=== PATIENT | female | born 1965 | race Caucasian/White ===

== ENCOUNTER 2024-03-14 02:53 | Emergency (ER) | payer BC, SELFPAY ==
[2024-03-14 02:54] VITALS: BP 121/85
--- NOTE | 2024-03-14 03:05 | ED.GENMED ---
History of Present Illness
General
Chief Complaint: Fainting/Passed Out
Time Seen by Provider: 03/14/24 03:05
Travel History
Have you had any contact with someone who has COVID-19?: No
Do you have any symptoms of coronavirus? Fever > 100 degrees, chills, cough, shortness of breath, sore throat, loss of taste or smell, muscle aches, or headache?: No
History of Present Illness
History of Present Illness:
HPI: Patient woke up and had a general unwell feeling. She thought she needed to vomit and try to go to the bathroom and thought she might be dehydrated. She then passed out. The glass that she was carrying broke. She has pain in the right side
of the back of the head and in the upper neck. She never had any chest pain or shortness of breath.
EXAM:
GENERAL: Well appearing in no distress
CERVICAL SPINE: (+) Midline upper c-spine tenderness
HEAD: No evidence of craniofacial trauma with exception of hematoma/tenderness near the mastoid on the right side, the patient has no evidence of laceration or any clear sign of broken glass on the scalp
CHEST: No chest wall tenderness, normal heart sounds
LUNGS: Equal lung sounds, no respiratory distress
ABDOMEN: No abdominal tenderness, no peritoneal signs
EXTREMITIES: Normal active range of motion, no tenderness
NEURO: Excellent strength all extremities, appropriate mental status, normal speech/language
TIME OF INITIAL ENCOUNTER: 3:10 AM
NUMBER AND COMPLEXITY OF PROBLEMS ADDRESSED AT THE ENCOUNTER
� Chronic conditions affecting care: Breast cancer, osteoporosis
� Acute Exacerbation and/or Progression of Chronic Illness: This is an acute problem
� Differential Diagnosis includes: Anemia, dehydration, electrolyte abnormality, dysrhythmia
AMOUNT AND/OR COMPLEXITY OF DATA TO BE REVIEWED AND ANALYZED
� I performed an independent evaluation of and my interpretation is:
EKG: Sinus 69, no acute ST abnormality, no change in comparison to 10/09/2022
CT: CT of the head and CT of the cervical spine showed no acute traumatic abnormality
X-rays:
Laboratory Studies: White count normal, hemoglobin 14.0, chemistries unremarkable
Other:
� Review of other/old records: The patient had a CAT scan 2021 of the brain which was unremarkable
� Clinical information was obtained by an independent historian: I spoke to the at bedside
� Prescriptions/Medications Considered but not given:
� Further testing considered but not performed:
RISK OF COMPLICATIONS AND/OR MORBIDITY OR MORTALITY OF PATIENT MANAGEMENT
� Social determinants of health affecting care: Lives at home
� Discussion with other providers:
� Escalation of care including admission/observation vs risk of discharge considered: The cause of the patient's syncopal event is unclear but basic studies are unremarkable. She did have some ongoing nausea here which may be
related to head injury. We gave Zofran and then Compazine. She was also given IV fluids.
Past History
Past History
ED Past Medical History: Other (breast CA)
Phy Exam
Physical Exam
Physical Exam:
See HPI
Course
Orders/Labs/Results
Orders:
Orders
03/14/24 03:05
Electrocardiogram (*1) Urgent
Reason for Study: Syncope
EKG- Treatment ONCE
03/14/24 03:06
Electrocardiogram (*1) Urgent
Reason for Study: Syncope
EKG- Treatment ONCE
03/14/24 03:15
CT Cervical Spine W/o Iv Contr Urgent
Comment:
Reason For Exam: trauma midline upper cspine tender
CT Head W/o Iv Contrast Urgent
Comment:
Reason For Exam: syncope head trauma
03/14/24 03:18
Basic Metabolic Panel Urgent
Complete Blood Count/With Diff Urgent
03/14/24 04:09
Ondansetron Injectable [Zofran] 4 mg .ROUTE .[facility]
03/14/24 04:10
Ondansetron Injectable [Zofran] 4 mg IV NOW STA
03/14/24 05:12
Acetaminophen [Tylenol] 1,000 mg .ROUTE .[facility]
03/14/24 05:13
0.9% Sodium Chloride 1000 ml [Nss] 1,000 ml IV BOLUS
Acetaminophen [Tylenol] 1,000 mg PO NOW STA
03/14/24 05:19
Prochlorperazine [Compazine] 10 mg .ROUTE .[facility]
03/14/24 05:21
Prochlorperazine [Compazine] 10 mg IV NOW STA
Abnormal Lab Results
03/14/24
03:18
RBC 4.15 L 10^6/uL
(4.20-5.40)
MCH 33.7 H pg
(27.0-31.0)
MCHC 37.2 H g/dL
(33.0-37.0)
RDW 11.2 L %
(11.5-14.5)
Absolute Neuts (auto) 9.3 H 10^3/uL
(1.4-6.5)
Absolute Lymphs (auto) 0.3 L 10^3/uL
(1.2-3.4)
Neutrophils % 93.4 H %
(42.2-75.2)
Lymphocytes % 3.1 L %
(20.5-51.1)
Glucose 135 H mg/dl
(70-99)
03/14/24 03:18
03/14/24 03:18
Vital Signs
Initial and Last Documented VS:
Initial Vital Signs
Temp Pulse Resp BP Pulse Ox
99.2 F 79 16 121/85 100
03/14/24 02:54 03/14/24 02:54 03/14/24 02:54 03/14/24 02:54 03/14/24 02:54
Last Documented Vital Signs
Temp Pulse Resp BP Pulse Ox
99.2 F 79 16 121/85 100
03/14/24 02:54 03/14/24 02:54 03/14/24 02:54 03/14/24 02:54 03/14/24 02:54
*Critical Care Note
Total Time (30-74mins, 75-104mins- exclusive of procedures): Not Applicable
ED Attending Note
-
Portions of this chart may have been created with voice recognition software.� Occasional wrong word or��sound alike� substitutions may have occurred due to the inherent limitations of voice recognition software.
Discharge Plan
Departure
Patient Disposition: Home (Routine Discharge)
Date of Disposition: 03/14/24
Time of Disposition: 06:04
Patient with high blood pressure during this ER visit?: Yes
Discharge Problem:
Syncope and collapse
Prescriptions:
No Action
valacyclovir [Valtrex] 1 gram tablet
1,000 mg PO Q8H Qty: 21 0RF
meclizine 25 mg tablet
25 mg PO TID PRN (Reason: dizziness) Qty: 10 0RF
Referrals:
Rimma Rodríguez MD [Family Provider] -
Activity Restrictions/Additional Instructions:
The cause of your symptoms is unclear. Your white blood cell count and hemoglobin are both normal, electrolytes and kidney function are normal. CAT scan of the brain and cervical spine showed no sign of bleeding. The EKG shows no abnormality.
You are given IV fluids. We also gave you Zofran and then Compazine for nausea. Regarding constipation, I recommend that you try [id number]. It is common to have nausea and a general unwell feeling after head injury that could be
related to concussion.
Interventions
Interventions:
*Risk Screen - Suicide Last Done: 03/14/24 02:54
*General Assessment Last Done: 03/14/24 02:54
*Neglect/Abuse Screening Last Done: 03/14/24 02:54
*ED COVID-19 Vaccine History Last Done: 03/14/24 03:20
*Nursing Disposition Last Done: 03/14/24 06:44
ED- Cardiac Assessment Last Done: 03/14/24 03:20
ED- Neurological Assessment Last Done: 03/14/24 03:20
Discharge Date and Time
Discharge Date/Time: 03/14/24 06:45
Print Language: [place]
[2024-03-14 03:20] VITALS: BMI 21.2
[2024-03-14 03:23] LABS: % Basophils 0.2 % (0-2); % Eosinophils 0.3 % (0-6); % Immature Granulocytes 0.3 % (0-0.5); % Lymphocytes 3.1 % (20.5-51.1); % Monocytes 2.7 % (1.7-9.3); % Neutrophils 93.4 % (42.2-75.2); Absolute Lymphocytes 0.3 10^3/uL (1.2-3.4); Absolute Monocytes 0.3 10^3/uL (0.1-0.6); Absolute Neutrophils 9.3 10^3/uL (1.4-6.5); Hematocrit 37.6 % (37.0-47.0); Mean Corp Hgb Conc. 37.2 g/dL (33.0-37.0); Mean Corpuscular Hgb 33.7 pg (27.0-31.0); Mean Corpuscular Volume 90.6 fL (81.0-99.0); Mean Platelet Volume 9.6 fL (7.4-10.4); Nucleated Red Blood Cells % 0 %; Platelet Count 168 10^3/uL (130-400); Red Blood Cell Count 4.15 10^6/uL (4.20-5.40); Red Cell Dist. Width 11.2 % (11.5-14.5); White Blood Cell Count 9.9 10^3/uL (4.8-10.8)
[2024-03-14 03:42] LABS: Blood Urea Nitrogen 14 mg/dl (7-17); Carbon Dioxide 26 mmol/L (22-30); Chloride 103 mmol/L (98-107); Estimated Creatinine Clearance 89 ml/min; Glucose 135 mg/dl (70-99); Potassium 3.9 mmol/L (3.5-5.1); Sodium 138 mmol/L (135-145); eGFR > 60.00
[2024-03-14] MEDS: ZOFRAN 4 MG IV (04:11)
[2024-03-14] MEDS: NSS 1000 IV (05:14)
[2024-03-14] MEDS: COMPAZINE 10 MG IV (05:21)
== END 2024-03-14 06:45 | disposition home or self-care (01) ==
LOC: EMR 02:53
PROVIDERS: EMERGENCY PHYSICIAN Emergency Medicine; FAMILY PHYSICIAN Internal Medicine
DX: R55 Syncope and collapse (principal); S00.83XA Contusion of other part of head, initial encounter; M54.2 Cervicalgia; R51.9 Headache, unspecified; R11.0 Nausea; W18.30XA Fall on same level, unspecified, initial encounter; R03.0 Elevated blood-pressure reading, without diagnosis of hypertension; M81.0 Age-related osteoporosis without current pathological fracture; Z85.3 Personal history of malignant neoplasm of breast
CPT/HCPCS: 99284; 96374; 96375; 96361; 70450; 72125; 80048; 85025; 93005

== ENCOUNTER → 2024-04-14 15:27 | Outpatient (REF) | payer BC, SELFPAY | LOC: HWRAD 15:27 | PROVIDERS: ATTENDING PHYSICIAN Internal Medicine | DX: R91.1 Solitary pulmonary nodule (principal) | CPT/HCPCS: 71250 ==